=== PATIENT | female | born 1965 | race African-American/Black ===

== ENCOUNTER → 2016-07-05 | Day surgery (SDC) | payer BC ==
[~2016-07-05] MED LIST: ADVIL200 M1 PO
--- NOTE | ~2016-07-05 | OR ---
Unit #: [id number] #: [id number] Patient: PHU THOMAS [id number] [address] [place], [place] [address] [id number] O MR#: [id number] NAME: PHU THOMAS ROOM: Date of Procedure: 07/05/2016 Admission Date: 07/05/2016 Surgeon: Kranthi Esparza M.D. : 1965 Attending Physician: Kranthi Esparza M.D. Referring Physician: Kranthi Esparza M.D. [facility] CENTER OPERATIVE NOTE PROCEDURE PERFORMED Lumbar epidural steroid injection under x-ray guided needle placement with provider administered conscious sedation. PREOPERATIVE DIAGNOSES 1. Acute lumbar radiculitis. 2. Spinal stenosis, lumbosacral spine. 3. Herniated disk, L3-L4. 4. Degenerative joint disease, lumbosacral spine. 5. Degenerative disk disease, lumbosacral spine. INDICATIONS FOR PROCEDURE The patient presents today with a longstanding history of bilateral lower extremity radicular pain left greater than right, which has failed to respond to medication and physical therapy. She is in possession of an MRI report, which shows diffuse disease; however, disease is most notably worse at the L3-L4 levels. After discussing risks and benefits of proceeding today with an L3-L4 epidural steroid injection, the patient agreed this would be the appropriate course of action. DESCRIPTION OF PROCEDURE She was then taken to the operating room, where she was prepped and draped in a sterile manner. Standard monitors were applied. She was sedated with 2 mg of IV Versed and lumbar epidural space was accessed at L3-L4 level using loss of resistance technique and x-ray guidance. Needle placement was confirmed with injection of 2 mL of Omnipaque. Dye flow in this injectate level was approximately 80% superior. Following successful needle placement confirmation which required an x-ray time was 7 seconds, the patient received an injectate containing 2 mL normal saline, 2 mL of 0.25% bupivacaine, and 80 mg of methylprednisolone. She tolerated this procedure well. She was discharged home with followup instructions, which include an offer to return to this clinic service as early as 07/24/2016 if we could be of further service to her. Dictated by... Kranthi Esparza M.D. LIZ/jonelle MONZON: 07/05/2016 13:16 TD: 07/06/2016 02:28 JOB #: [id number] Unit #: [id number] #: [id number] Patient: PHU THOMAS CC: Esvin Collier M.D. [facility]ENTER OPERATIVE NOTE Page 1 of 1 X Marek Esparza MD PROCEDURE OPERATIVE NOTE
== END | disposition home or self-care (01) ==
LOC: CCSC 11:49
DX: M51.17 Intervertebral disc disorders with radiculopathy, lumbosacral region (principal); M51.16 Intervertebral disc disorders with radiculopathy, lumbar region; M48.07 Spinal stenosis, lumbosacral region
CPT/HCPCS: J1040; J2250

== ENCOUNTER → 2016-07-24 | Day surgery (SDC) | payer BC ==
--- NOTE | ~2016-07-24 | OR ---
Unit #: [id number] #: [id number] Patient: PHU THOMAS [id number] [address] [place], [place] [address] [id number] O MR#: [id number] NAME: PHU THOMAS ROOM: Date of Procedure: 07/24/2016 Admission Date: 07/24/2016 Surgeon: Kranthi Esparza M.D. : 1965 Attending Physician: Kranthi Esparza M.D. Referring Physician: Kranthi Esparza M.D. Primary Care Physician: Claudia Medrano M.D. SUR[facility]ENTER OPERATIVE NOTE PROCEDURE PERFORMED Lumbar epidural steroid injection under x-ray guided needle placement with provider administered conscious sedation. PREOPERATIVE DIAGNOSES 1. Acute lumbar radiculitis. 2. Spinal stenosis, lumbosacral spine. 3. L2-L3 listhesis. 4. L4-L5 listhesis. 5. Degenerative joint disease, lumbosacral spine. 6. Degenerative disk disease, lumbosacral spine. INDICATIONS FOR PROCEDURE The patient presents today status post one previous lumbar approach epidural steroid injection for an acute radiculitis, which had failed to respond to conservative therapy. She states she got excellent results, almost complete resolution of her symptoms. However, she has begun developed symptom return as well as a particularly painful left thigh pain, which is consistent with her previous open radiculitis. After discussing risks and benefits of proceeding today with dual needle technique as well as a return on 10/30/2016, the patient agreed this would be the appropriate course of action. We also discussed a return to her referring provider, Dr. Esvin hull for referral for Sports Medicine consult. This patient is convinced that there is a musculoskeletal injury to her left thigh muscle. DESCRIPTION OF PROCEDURE After these discussions, the patient was taken to the operating room, where she was prepped and draped in a sterile manner. Standard monitors were applied. She was sedated with 2 mg of IV Versed and lumbar epidural space accessed at the L4-L5 and the L2-L3 levels using loss of resistance technique and x-ray guidance. Needle placement was confirmed with injection of 2 mL of Omnipaque at each site. There was good superior and inferior flow at both levels. Total x-ray time for this dual needle placement was 10 seconds. Following successful needle placement confirmation, the patient received an injectate containing 4 mL normal saline and 40 mg of methylprednisolone at each site for total injectate volume of 8 mL normal saline and 80 mg of methylprednisolone. She tolerated this procedure well. She was discharged home with followup instructions, which were described above. Dictated by... Unit #: [id number] #: [id number] Patient: MARTHAPHU DELGADO M.D. JRG/jonelle TD: 07/25/2016 01:23 JOB #: [id number] CC: Esvin Hull M.D. SUR[facility]ENTER OPERATIVE NOTE Page 1 of 1 X Marek Esparza MD X PROCEDURE OPERATIVE NOTE
== END | disposition home or self-care (01) ==
LOC: CCSC 09:19
DX: M47.27 Other spondylosis with radiculopathy, lumbosacral region (principal); M51.17 Intervertebral disc disorders with radiculopathy, lumbosacral region; M43.16 Spondylolisthesis, lumbar region; M48.07 Spinal stenosis, lumbosacral region; Z95.0 Presence of cardiac pacemaker
CPT/HCPCS: J1040; J2250

== ENCOUNTER → 2016-11-20 | Day surgery (SDC) | payer BC ==
--- NOTE | ~2016-11-20 | OR ---
Unit #: [id number] #: [id number] Patient: PHU THOMAS [id number] [address] [place], [place] [address] [id number] O MR#: [id number] NAME: PHU THOMAS ROOM: Date of Procedure: 11/20/2016 Admission Date: 11/20/2016 Surgeon: Kranthi Esparza M.D. : 1965 Attending Physician: Marek Esparza Primary Care Physician: Claudia Medrano M.D. SUR[facility] CENTER OPERATIVE NOTE PROCEDURE PERFORMED Lumbar epidural steroid injection under x-ray guided needle placement. PREOPERATIVE DIAGNOSES 1. Acute lumbar radiculitis. 2. Spinal stenosis, lumbosacral spine. 3. Herniated disk, L3-L4. 4. Degenerative joint disease, lumbosacral spine. 5. Degenerative disk disease, lumbosacral spine. 6. Facet arthralgia, lumbosacral spine. 7. Facet arthrosis, lumbosacral spine. INDICATIONS FOR PROCEDURE The patient presents today with longstanding history of chronic lumbar radicular pain secondary to her underlying degenerative processes. She is generally fairly well managed medically, but does occasionally experience exacerbations, which to date have only responded to interventional pain management procedures. Her usual amount of relief is 80% to 100% for 8 to 10 weeks. She presents today having just such an exacerbation, which has again broken through her usual and ongoing conservative measures. She states radicular pain, she did experience complaints compatible with a facet arthralgia, which appeared to be advancing in a crescendo pattern is a cause of deep concern for her. After discussing risks and benefits of proceeding today with a lumbar approach epidural steroid injection, the patient now felt that would be the appropriate course of action. We also discussed referral to [facility] for potential radiofrequency ablation and she and I felt that too would be an appropriate course of action. DESCRIPTION OF PROCEDURE Following these discussions, the patient was taken to the operating room where she was prepped and draped in a sterile manner. Standard monitors were applied. She refused all forms of sedation and lumbar epidural space accessed at the L3-L4 level using loss of resistance technique and x-ray guidance. Needle placement was confirmed with injection of 2 mL of Omnipaque. There was good superior and inferior flow at this L3-L4 level. Following successful needle placement confirmation at the L3-L4 level, the patient received an injectate containing 6 mL of normal saline and 80 mg of methylprednisolone. She tolerated this procedure well. She was discharged home with instructions which include referral to [facility] as described above as well as an offer to return to this clinic as early as 03/07/2017 if we could be of further service to her. Unit #: [id number] #: [id number] Patient: PHU THOMAS Dictated by... Kristie Casey/jonelle TD: 11/20/2016 15:33 JOB #: [id number] CC: Esvin Collier M.D. SURGERY CENTER OPERATIVE NOTE Page 1 of 1 X Marek Esparza MD X PROCEDURE OPERATIVE NOTE
== END | disposition home or self-care (01) ==
LOC: CCSC 12:57
DX: G89.29 Other chronic pain (principal); M51.16 Intervertebral disc disorders with radiculopathy, lumbar region; M51.17 Intervertebral disc disorders with radiculopathy, lumbosacral region; M48.07 Spinal stenosis, lumbosacral region; M47.27 Other spondylosis with radiculopathy, lumbosacral region; Z79.1 Long term (current) use of non-steroidal anti-inflammatories (NSAID); Z95.0 Presence of cardiac pacemaker; Z98.890 Other specified postprocedural states
CPT/HCPCS: J1040; J2250